=== PATIENT | male | born 1980 | race African-American/Black ===

== ENCOUNTER 2020-05-06 10:23 | Outpatient (CLI) | payer MEDICARE, MEDICAID, SELFPAY | END 2020-05-06 10:24 | disposition home or self-care (01) | LOC: ANHBWCAUD 10:24 | DX: F84.0 Autistic disorder (principal); E66.9 Obesity, unspecified | CPT/HCPCS: 92557; 92567 ==

== ENCOUNTER 2021-09-05 08:34 | Outpatient (CLI) | payer MEDICARE, MEDICAID, SELFPAY | END 2021-09-05 08:35 | disposition home or self-care (01) | LOC: ANHBWCAUD 08:37 | DX: H91.93 Unspecified hearing loss, bilateral (principal) | CPT/HCPCS: 92557; 92567 ==